=== PATIENT | female | born 1980 | race Caucasian/White ===

== ENCOUNTER 2017-08-18 05:57 | Day surgery (SDC) | payer OTHER ==
[2017-08-16 17:27] VITALS: BMI 27.1
[2017-08-18] MEDS ORDERED: ROCURONIUM BROMIDE 50 MG/5 ML VIAL ONE (06:58)
[2017-08-18] MEDS ORDERED: MIDAZOLAM HCL 2 MG/2 ML SINGLE DOSE VIAL ONE (06:58)
[2017-08-18] MEDS ORDERED: SUCCINYLCHOLINE CHLORIDE 200 MG/10 ML VIAL ONE (06:58)
[2017-08-18] MEDS ORDERED: PROPOFOL 20 ML ONE ×3 (06:59→08:06)
[2017-08-18] MEDS ORDERED: KETOROLAC TROMETHAMINE 30 MG/1 ML VIAL ONE (06:59)
[2017-08-18] MEDS ORDERED: ONDANSETRON 4 MG/2 ML VIAL ONE ×2 (06:59→08:13)
[2017-08-18] MEDS ORDERED: LIDOCAINE HCL/PF 2% SDV 5ML VIAL ONE ×2 (06:59→08:46)
[2017-08-18] MEDS ORDERED: DEXAMETHASONE SOD PHOSPHATE 4 MG/1 ML VIAL ONE ×2 (06:59→08:13)
[2017-08-18] MEDS ORDERED: DESFLURANE GAS 240 ML BOTTLE IH ONE (07:05)
[2017-08-18] MEDS ORDERED: EPINEPHrine 1:1,000 1 MG/1 ML - 30ML VIAL (INJECTION) ONE (07:14)
[2017-08-18] MEDS ORDERED: GENTAMICIN SO4 80 MG/2 ML VIAL ONE (07:14)
[2017-08-18] MEDS ORDERED: LIDOCAINE 1%/EPI 1:100000 (20 ML MULTI DOSE VIAL) ONE (07:14)
[2017-08-18] MEDS ORDERED: ceFAZolin SODIUM 1 GM VIAL ONE (07:14)
[2017-08-18] MEDS ORDERED: LIDOCAINE HCL 1%, 10 MG/ML (20ML VIAL) ONE (07:14)
[2017-08-18] MEDS ORDERED: BUPIVACAINE HCL/PF 0.5% (5MG/ML) 10 ML VIAL ONE (07:14)
[2017-08-18] MEDS ORDERED: ONDANSETRON 4 MG/2 ML VIAL IVPUSH PRN (07:17)
[2017-08-18] MEDS ORDERED: oxyCODONE HCL 5 MG TABLET PO PRN ×2 (07:17)
[2017-08-18] MEDS ORDERED: LACTATED RINGERS SOLUTION 1,000 ML IV SCH (07:30)
[2017-08-18] MEDS ORDERED: SODIUM CHLORIDE 0.9% P/F 10 ML VIAL IJ ONE (08:06)
[2017-08-18] MEDS ORDERED: VANCOMYCIN 1,000 MG VIAL (RESTRICTED TO ID ONLY) ONE (08:06)
[2017-08-18] MEDS ORDERED: ePHEDrine SULFATE 50 MG/1 ML AMPULE ONE (08:13)
[2017-08-18 11:36] VITALS: TEMP 97.6
[2017-08-18] MEDS ORDERED: oxyCODONE HCL 5 MG TABLET ONE (12:38)
[2017-08-18 15:24] VITALS: BP 113/64; PULSE 78
--- NOTE | 2017-08-18 16:56 | OP ---
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 Operation: Bilateral Subcutaneous tissue transfer to breast, Left Breast caspulectomy, left breast implant exchange, right breast mastopexy Post-Operative Diagnosis: Same as Pre-op Surgeon: Jamari Batres Client Services Assistant: Rossy Ni Anesthesiologist/LEGAL ASSISTANT: Jose Antonio Beth Anesthesia: General Specimens Removed: left breast capsule, left breast implant Estimated Blood Loss (mls): 50 Fluid Volume Replaced (mls): 1,000 Operative Report Dictated: Yes
--- NOTE | 2017-08-18 16:57 | SURG ---
Surgery Transit Mixer Operator Note Transit Mixer Operator: Rossy Ni PA-C Date of Service: 08/18/17 Diagnosis: Left breast capsular contracture with asymmetry of breast after reconstruction. Procedure: Bilateral Subcutaneous tissue transfer to breast, Left Breast caspulectomy, left breast implant exchange, right breast mastopexy I was present for the entirety of the operative procedure. For further detail, please refer to operative report. Visit type - Case Type Case Type: Scheduled - Emergency Emergency Visit: No - New patient This patient is new to me today: Yes Date on this admission: 08/18/17
--- NOTE | 2017-08-18 19:28 | OP ---
DATE OF OPERATION: 08/18/2017 SURGEON: Jamari Batres MD OCCUP THER: Rossy Ni PA-C PREOPERATIVE DIAGNOSES: 1. Bilateral acquired chest wall deformity, status post bilateral mastectomy. 2. Capsular contracture with pain, left breast. POSTOPERATIVE DIAGNOSES: 1. Bilateral acquired chest wall deformity, status post bilateral mastectomy. 2. Capsular contracture with pain, left breast. OPERATIVE PROCEDURE: 1. Right breast reconstruction utilizing other technique. 2. Left breast reconstruction utilizing other technique. 3. Left breast capsulectomy, removal and replacement of left breast implant. 4. Right breast mastopexy for symmetry. OPERATIVE INDICATION: The patient is a young woman who underwent bilateral mastectomy and reconstruction and presented a few months ago with capsular contracture of the left breast only. She has been increasingly having pain, discomfort, and distortion of the left breast and has been unrelieved with Accolate medication for this condition. The risks and benefits of surgical versus nonsurgical alternatives as well as interval complications of surgical intervention were described to the patient and she agreed to the planned procedure because of the severe discomfort, distortion, and asymmetry of the chest wall. The patient was marked in the standing position preoperatively in the holding area today and had previous multiple discussions regarding the possibility of recurrence of capsular contracture even in the face of surgery. She understood. All questions were asked and answered. OPERATIVE PROCEDURE IN DETAIL: The patient was taken to the operating room and after induction of general anesthesia in the supine position. Both arms were extended and padded. Venodyne booths were placed. The entire chest wall, abdomen, and flank area were prepped with ChloraPrep solution. After allowing 3 minutes of drying, the drapes were placed in the usual fashion and attention was turned to the mastectomy scars. The scars on both breasts were injected with 1% local lidocaine anesthesia with 1:100,000 epinephrine, down through the skin and into the deep tissue along the lower border of the breasts. An area in the lower abdomen was also marked for incision and injected for harvest of reconstructive tissue. Attention was then turned to the left breast. After timeout, an incision was made down through the skin to the subcutaneous tissue, through the mastectomy scar of the left breast, down to the underlying, very firm, tight capsule on the left side. This was incised using electrocautery and then I performed a capsulectomy. The posterior aspect of the capsule appeared to be thickened and large portions of the capsule were removed and sent for pathologic diagnosis. One area in particular on the posterior aspect of the capsule showed a darkened area that was sent separately to rule out lesion. Other portions of the capsule were removed in order to relieve the contracture. The implant was sent for pathologic diagnosis and the small amount of fluid, which was around the implant was cultured for aerobic and anaerobic bacteria. A significant seroma was not seen, but there was definite fluid around the implant. At this point, copious irrigation with triple antibiotic solution was carried out over the entire wound and pocket. Capsulectomy was continued to be performed. Hemostasis was meticulously obtained throughout the pocket. Attention was turned to the left breast. A mastopexy incision had been planned in a crescentic fashion in the superior portion of the nipple areolar complex. This was injected and then excised down through the skin and subcutaneous tissue and sent for pathologic diagnosis to rule out tumor. An elevation of the nipple areolar complex with mastopexy was carried out and closed in an interrupted fashion after hemostasis with 3-0 Biosyn and 4-0 Biosyn in the subcuticular fashion. Incisions were then made deeply down into the area of the lower abdominal and flank area and into the area just over the rectus and oblique muscles. Tissue was then harvested in a reconstructive fashion from the deep area above the muscles. This was transferred to the back table, prepared, cleansed, and utilized for reconstructive purposes. Before replacing the implant, the tissue was transferred to the posterior aspect behind the capsule, just above the rib margin and then into the area in the superior portion of the pocket where the capsule was previously sitting to allow for reconstruction. The tissue was also transferred separately into the lower pole of the right breast medial and central superior aspect independently for reconstruction and symmetry. At this point, an implant was chosen for replacement and Natrelle Inspira style SSF 605 mL volume was placed into the left breast pocket, which matched the previous volume of the other implant for replacement. This showed good shape and contour and then the deep subcutaneous tissues were closed with interrupted sutures using 3-0 PDS suture on the deep tissue, 3-0 Biosyn in the subdermal fashion, and 4-0 Biosyn in the subcuticular fashion. Good symmetry was seen and softness of the breast occurred on the left side. All wounds on the donor site were repaired with interrupted running sutures. Steri-Strips and Dermabond were placed over all wounds in the usual fashion. She was dressed in a Surgi-Bra with fluff dressings, awakened, and transferred to the recovery room in satisfactory condition, and tolerated the procedure well. KATHY BATRES M.D. [id number]
--- NOTE | 2017-08-24 14:58 | PATH ---
Surgical Pathology Report Patient Name: NATTY BEJARANO Med. Rec. #: [id number] /Age/Gender: 1980 (Age: 37) / F Account: [id number] Location: [facility] AMBUL[facility]ORY Taken: 08/18/2017 Received: 08/18/2017 Reported: 08/24/2017 Physicians: Jamari Batres Specimen(s) Received A: CAPSULE LEFT BREAST #1, RULE OUT DARK LESION B: CAPSULE LEFT BREAST #2 C: IMPLANT LEFT BREAST CONTRACTURE D: RIGHT BREAST TISSUE Clinical History History of breast cancer, previous bilateral mastectomy Capsular contracture left breast Final Diagnosis A. LEFT BREAST, CAPSULE #1, RULE OUT DARK LESION, EXCISION: FIBROUS TISSUE AND ADJACENT BREAST TISSUE SHOWING FIBROSIS, FOCAL CHRONIC INFLAMMATORY INFILTRATE, HEMATOMA, AND RECENT HEMORRHAGE. B. LEFT BREAST, CAPSULE #2, EXCISION: FIBROUS TISSUE, ADJACENT BREAST TISSUE, AND SKELETAL MUSCLE SHOWING FIBROSIS, FOCAL CHRONIC INFLAMMATORY INFILTRATE, AND RECENT HEMORRHAGE. C. LEFT BREAST, IMPLANT, REMOVAL: BREAST IMPLANT. GROSS EXAMINATION ONLY. D. RIGHT BREAST TISSUE, EXCISION: SEGMENT OF SKIN WITH FOCAL FIBROSIS IN THE DERMIS. Electronically Signed Pavel Rosario M.D. Gross Description A. Received in formalin labeled "capsule left breast #1, rule out dark lesion," is a 3.7 x 1.4 x 0.2 cm portion of vargas-pink, firm fibrous tissue, consistent with a fibrous capsule. The specimen is entirely submitted. B. Received in formalin labeled "capsule left breast #2," is a 9.0 x 6.0 x 0.8 cm aggregate of multiple portions of firm fibrous tissue, consistent with a fibrous capsule. Sectioning reveals a 0.8 x 0.7 x 0.6 cm firm nodule within one of the portions of tissue. Pillow Cleaner sections including the nodule are submitted in one cassette. C. Received fresh labeled "old implant left breast," is a 14 cm in diameter x 4.5 cm in depth clear, rubbery breast implant. No soft tissue is present. No sections are submitted, gross only. D. Received in formalin labeled "right breast tissue," is a 4.0 x 0.8 cm vargas, unoriented portion of skin. No discrete lesions are identified. Pillow Cleaner sections are submitted in one cassette. 08/19/2017 saudi08/19/2017
== END 2017-08-18 15:15 | disposition home or self-care (01) ==
LOC: FASU 05:57
PROVIDERS: ATTEND Plastic Surgery
PROC: 0HQT0ZZ Repair Right Breast, Open Approach (ICD-10-PCS; 2017-08-18)
PROC: 0HRV07Z Replacement of Bilateral Breast with Autologous Tissue Substitute, Open Approach (ICD-10-PCS; principal; 2017-08-18 08:33)
PROC: 0HPU0JZ Removal of Synthetic Substitute from Left Breast, Open Approach (ICD-10-PCS; 2017-08-18 08:33)
PROC: 0HRU0JZ Replacement of Left Breast with Synthetic Substitute, Open Approach (ICD-10-PCS; 2017-08-18 08:33)
DX: M95.4 Acquired deformity of chest and rib (principal); Z90.13 Acquired absence of bilateral breasts and nipples; T85.44XA Capsular contracture of breast implant, initial encounter; Y83.4 Other reconstructive surgery as the cause of abnormal reaction of the patient, or of later complication, without mention of misadventure at the time of the procedure; Y92.9 Unspecified place or not applicable
CPT/HCPCS: 84703; 87070; 87075; 87205; 88300-TC; 88304-TC; 94760